=== PATIENT | male | born 1970 | race Caucasian/White ===

== ENCOUNTER 2017-10-05 09:03 | Outpatient (CLI) | payer BC ==
[2017-10-05] MEDS ORDERED: ISOVUE-370 76%-LOCM 1 ML ONE (12:54)
== END 2017-10-05 09:04 | disposition home or self-care (01) ==
LOC: BICCT 09:03
PROVIDERS: ATTEND Internal Medicine Gastroenterology
DX: R10.13 Epigastric pain (principal); R19.4 Change in bowel habit; R14.3 Flatulence; K21.9 Gastro-esophageal reflux disease without esophagitis; R30.0 Dysuria; F10.11 Alcohol abuse, in remission; F32.9 Major depressive disorder, single episode, unspecified; K57.30 Diverticulosis of large intestine without perforation or abscess without bleeding
CPT/HCPCS: 74178

== ENCOUNTER 2017-10-24 08:47 | Outpatient (CLI) | payer BC ==
--- NOTE | 2017-10-24 13:03 | NM ---
RADIONUCLIDE LIVER AND SPLEEN SCAN: HISTORY: Abnormal CAT scan. Possible pancreatic mass. FINDINGS: There is homogeneous uptake of radiotracer throughout the liver and spleen. At the pancreatic tail, no abnormal uptake is apparent. No heterotopic hepatic or splenic material is evident. IMPRESSION: No scintigraphic evidence of splenule or other heterotopic liver/spleen material. In retrospect, the isodense nodularity at the pancreatic tail, when correlated with today's CT images , is favored to represent normal pancreatic material, slightly compressed by the renal cortex. No pa ncreatic mass is suspected. Further evaluation is not felt to be needed. Exam was read in conjunction with Dr. Suarez. POS: [facility]
== END 2017-10-24 08:48 | disposition home or self-care (01) ==
LOC: NM 08:47
PROVIDERS: ATTEND Internal Medicine Gastroenterology
DX: K86.9 Disease of pancreas, unspecified (principal); R93.3 Abnormal findings on diagnostic imaging of other parts of digestive tract
CPT/HCPCS: 78215; A9541

== ENCOUNTER 2019-08-14 07:35 | Outpatient (CLI) | payer BC ==
--- NOTE | 2019-08-14 08:23 | ULT ---
ULTRASOUND ABDOMEN COMPLETE: DATE: 08/14/2019 HISTORY: Right upper quadrant abdominal pain and alcohol abuse FINDINGS: Gallbladder: Normal wall thickness. No evidence of pericholecystic fluid, gallstones, or sludge. Liver: Diffusely increased echogenicity, consistent with fatty liver. Common duct caliber: 3 mm. Bilateral kidneys: No hydronephrosis. Pancreas: Nonspecific sonographic appearance. Abdominal aorta: No aneurysm Inferior vena cava: Unremarkable where visualized. Spleen: No splenomegaly IMPRESSION: 1) Hepatic steatosis. 2) no other pathology identified.
== END 2019-08-14 07:36 | disposition home or self-care (01) ==
LOC: BICULT 07:35
PROVIDERS: ATTEND Physician Assistant Medical
DX: R10.11 Right upper quadrant pain (principal); R10.32 Left lower quadrant pain; F10.10 Alcohol abuse, uncomplicated; K76.0 Fatty (change of) liver, not elsewhere classified
CPT/HCPCS: 36415; 80053; 82150; 83690; 85025; 85610; 93975